=== PATIENT | female | born 1990 | race African-American/Black ===

== ENCOUNTER 2021-02-11 18:31 | Observation (INO) | payer OTHER, BC, SELFPAY ==
[2021-02-11] VITALS (11 sets, daily range): BP systolic 115–130; BP diastolic 46–83; PULSE 88–106; RESP 16; TEMP 36.7; O2SAT 97–100; BMI 42.2
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
--- NOTE | 2021-02-11 22:00 | PC.NURSE ---
FHT reactive, Pt denies contractions. Pt comortable and denies any complaints. TO nbe discharged to home.
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
== END 2021-02-11 22:10 | disposition home or self-care (01) ==
LOC: ANHED 19:31 → ANHOBPP 19:46
PROVIDERS: Admitting Provider Obstetrics & Gynecology; Emergency Provider Emergency Medicine; Visit Provider Obstetrics & Gynecology
DX: Z04.1 Encounter for examination and observation following transport accident (principal); O26.893 Other specified pregnancy related conditions, third trimester; T14.90XA Injury, unspecified, initial encounter; V49.40XA Driver injured in collision with unspecified motor vehicles in traffic accident, initial encounter; Z79.82 Long term (current) use of aspirin; Z3A.00 Weeks of gestation of pregnancy not specified
CPT/HCPCS: 99285; G0378

== ENCOUNTER 2021-03-21 17:06 | Inpatient (IN) | payer BC, SELFPAY ==
[2021-03-21 17:49] VITALS: BMI 42.2
--- NOTE | 2021-03-21 17:51 | LDADM ---
This patient, Tho Rey, was admitted to Labor/Delivery/Recovery 108 on 03/21/21 at 17:06. Plans for labor, pain management and were discussed with patient. Patient/family oriented to hospital policies and general routines including ID bracelet, bed and alarms, visiting hours, pain management, procedures, bathroom and other care routines, personal items, smoking policy, room service/diet and guest tray routines, infant security routines, and visiting hours. Patient/Family are encouraged to report perceived risks to care and to ask questions if they do not understand what they are told or what they should do. See OBIX for further documentation.
[2021-03-21 17:52] LABS: Basophils Percent Auto 0.2 % (0.2-1.2); Eosinophils Absolute Auto 0.1 K/mm3 (0-0.3); Eosinophils Percent Auto 1.9 % (0-4.4); Hemoglobin 13.2 g/dL (12.0-15.0); Immature Granulocyte Absolute 0.02 K/mm3 (0.00-0.031); Immature Granulocyte Percent A 0.3 % (0-0.5); Lymphocytes Absolute Auto 1.49 K/mm3 (0.9-3.2); Lymphocytes Percent Auto 25.8 % (18.3-44.2); Mean Corpuscular HGB Conc 33.8 g/dl (32-36); Mean Corpuscular Hemoglobin 29.9 pg (26-34); Mean Corpuscular Volume 88.4 fl (80-100); Monocytes Absolute Auto 0.4 K/mm3 (0.1-0.6); Monocytes Percent Auto 7.3 % (2.6-8.5); Neutrophils Absolute Auto 3.7 K/mm3 (1.3-6.7); Neutrophils Percent Auto 64.5 % (45.5-73.1); Platelet Count Result 160 k/mm3 (150-375); Red Blood Count 4.41 M/mm3 (4.2-5.4); Red Cell Distribution Width 13.2 % (11.5-14.5); White Blood Count 5.8 K/mm3 (4.5-10.0)
[2021-03-21 18:00] VITALS: BP 115/74; PULSE 90
[2021-03-21] MEDS: DINOPROSTONE 10 MG VAG INSERT VAGINAL (18:02)
[2021-03-21 19:00] VITALS: BP 115/68; PULSE 70
[2021-03-21 20:00] VITALS: BP 111/69; PULSE 74; TEMP 36.2
[2021-03-22] VITALS (301 sets, daily range): BP systolic 78–224; BP diastolic 47–212; PULSE 54–128; TEMP 36.1–36.8; O2SAT 90–100
[2021-03-22] MEDS: LACTATED RINGERS 1,000 ML 125 ML IV CONT ×4 (07:03→17:40)
[2021-03-22] MEDS: OXYTOCIN 30 UNITS/NS 500 ML 30 UNITS/500 ML BAG 6 UNITS IV CONT (07:05)
--- NOTE | 2021-03-22 08:22 | WPDOBADMIT ---
Obstetrics - Admit Note Admission Note: record reviewed. No pertinent additions to the history and/or any subsequent changes in the physical findings that are not consistent with the expected course of the were found. Additions to the history and/or subsequent changes in the physical findings follow. G1 at 39+1 s/p cervidil overnight for induction of labor. Cervix 2/70/-2. AROM with clear fluid and IUPC placed easily. Fetus reactive, moderate variability, occasionla variable decels. Category II. GBS negative.
--- NOTE | 2021-03-22 09:13 | WPDANESEPP ---
Anes - Eval Pre Procedure Procedure: Labor Epidural Date/Time: 03/22/21 09:13 Surgeon: Yariel Preop Diagnosis: Labor Pain Pre Op Diagnosis: induction Patient Data Age: 30 Gender: F Height: 1.65 m Weight: 115 kg Last Vital Signs Temp 36.2 C L 03/22/21 07:05 Pulse 78 03/22/21 09:10 BP 118/72 03/22/21 09:10 Pulse Ox 100 03/22/21 09:11 Allergies Allergy/AdvReac Type Severity Reaction Status Date / Time No Known Allergies Allergy Verified 03/19/21 14:31 Home Medications Medication Instructions Recorded Confirmed Type docosahexaenoic acid 200 mg capsule mg PO 09/04/20 02/26/21 History ergocalciferol (vitamin D2) 1,250 1,250 mcg PO 2XW #24 cap 10/06/20 02/26/21 Rx mcg (50,000 unit) capsule aspirin 81 mg chewable tablet 81 mg PO DAILY 10/23/20 02/26/21 History Laboratory Tests 03/21/21 03/21/21 03/21/21 17:40 17:40 17:40 WBC 5.8 K/mm3 K/mm3 (4.5-10.0) RBC 4.41 M/mm3 M/mm3 (4.2-5.4) Hgb 13.2 g/dL g/dL (12.0-15.0) Hct 39.0 % % (37.0-47.0) MCV 88.4 fl fl (80-100) MCH 29.9 pg pg (26-34) MCHC 33.8 g/dl g/dl (32-36) RDW 13.2 % % (11.5-14.5) Plt Count 160 k/mm3 k/mm3 (150-375) MPV 12.0 fl H fl (7.4-10.4) Immature Gran % (Auto) 0.3 % % (0-0.5) Neut % (Auto) 64.5 % % (45.5-73.1) Lymph % (Auto) 25.8 % % (18.3-44.2) Grady % (Auto) 7.3 % % (2.6-8.5) Eos % (Auto) 1.9 % % (0-4.4) Baso % (Auto) 0.2 % % (0.2-1.2) Lymph # (Auto) 1.49 K/mm3 K/mm3 (0.9-3.2) Grady # (Auto) 0.4 K/mm3 K/mm3 (0.1-0.6) Eos # (Auto) 0.1 K/mm3 K/mm3 (0-0.3) Baso # (Auto) 0.0 K/mm3 K/mm3 (0.0-0.1) Abs Immat Gran (auto) 0.02 K/mm3 K/mm3 (0.00-0.031) Absolute Neuts (auto) 3.7 K/mm3 K/mm3 (1.3-6.7) Absolute Nucleated RBC 0.0 K/mm3 K/mm3 (0.0-0.012) Nucleated RBC % 0.0 % % (0.0-0.2) RPR Pending Blood Type O Positive Antibody Screen Negative : gestational age (LULA 03/27/21, ) Patient hx anesthesia problems: none Family hx anesthesia problems: none PMFSH Surgical History Surgical History No pertinent past surgical history Family History Family History Mother Breast cancer Hypertension Father Diabetes mellitus Family history of arthritis Family history of gout Social History Social History Smoking status: Never smoker Alcohol intake: never Substance use: unknown Spiritual care concerns: No Exam Day of Procedure 03/22/21 09:13 Patient weight: morbidly obese Heart: regular rate and rhythm Lungs: normal air movement Airway: Mallampati scale class III Neurological: alert and oriented
[2021-03-22 10:08] LABS: Rapid Plasma Reagin Non-Reactive (NonReactive)
[2021-03-22] MEDS: PHENYLEPHRINE 1,000 MCG/10 ML SYRINGE 100 MCG IV PUSH (10:42)
[2021-03-22] MEDS: CALCIUM CARBONATE (TUMS) 500 MG (200 MG ELEMENTAL) PO (22:33)
[2021-03-23] VITALS (91 sets, daily range): BP systolic 93–144; BP diastolic 41–109; PULSE 69–179; RESP 16–18; TEMP 36.8–37.3; O2SAT 86–100
[2021-03-23] MEDS: AMPICILLIN 2 GM/NS 100 ML 2 GM/100 ML BAG IVPB (02:56)
[2021-03-23] MEDS: LACTATED RINGERS 1,000 ML 125 ML IV CONT (02:57)
--- NOTE | 2021-03-23 04:54 | PM.OBPRVD ---
OB - Delivery Note Procedure Delivery date: 03/23/21 Procedure: events: Labor Induction Intrapartal events: Prolonged Labor > 20 hours Induction method: per pitocin protocol and per cervidil protocol Delivery augmentation: rupture of membranes Delivery monitor: external FHT and internal uterine Route of delivery: Laceration Description: Periurethral and Perineal - 2nd Degree Delivery repair: vicryl (2-0 perineal, 3-0 periurethral) Specimen: No Quantitative Blood Loss (ml): 421 Anesthesia type: Local Disposition: floor [place] Baby Date of : 03/23/21 Time of : 04:20 Weeks of gestation at delivery: 39 gender: Male Weight (pounds): 6 Weight (ounces): 13 presentation: vertex position: Left Occiput Anterior cord vessel description: 3 Vessels, Nuchal Cord, True Knot, Loose, Reduced and Clamped/Cut score one minute: 8 score five minutes: 9
[2021-03-23] MEDS: OXYTOCIN 30 UNITS/NS 500 ML 30 UNITS/500 ML BAG 125 UNITS IV CONT (05:00)
[2021-03-23] MEDS: IBUPROFEN 600 MG TABLET PO ×2 (07:16→15:56)
[2021-03-23] MEDS: WITCH HAZEL 40 PADS 1 PAD TOPICAL (07:16)
[2021-03-23] MEDS: BENZOCAINE 20% AER SPR (*SP) 56 GM CAN 1 SPRAY TOPICAL (07:16)
--- NOTE | 2021-03-23 08:40 | PC.NURSE ---
Patient transferred to post room #286 via wheelchair. Support person present. Oriented to unit, room, information board, rooming in, admission packet and security measures. Patient verbalizes understanding.
--- NOTE | 2021-03-23 09:40 | PC.NURSE ---
Mother called out for assist with feeding. Mother states is unable to latch, she was given a nipple shield for first feeding. Reviewed infant feeding cues, frequencies, duration of feedings, feeding elimination flow sheet, and signs of adequate intake. Demonstrated stimulation techniques to wake infant for feeding. Assisted with to breast. Reviewed positioning/alignment in cross cradle, holding breast in ?U? hold and guided asymmetrical latch on. Reviewed rational for each. was unable to latch and draw nipple in deeply, several attempts made. Discussed nipple shield use and how shield may assist with latch. Reviewed nipple shield precautions and possible complications. Instructions given on application and cleaning of shield. Patient able to return demonstration on proper application of shield. Discussed the need to initiate pumping if continues to nurse with the shield. Patient verbalizes understanding. With shield in place, infant able to latch correctly within a few attempts. Infant nursed sleepily with a few bursts of suckling with occasional swallowing noted. Reviewed signs of a correct latch, effective nursing and suck swallow ratio. Infant was able to maintain latch without discomfort to mother. Suggested mother stimulate while feeding to increase stimulate, increase intake and to assist with maintaining deep latch. Demonstrated how to adjust latch more deeply while feeding if needed. Discussed the difference of effective vs ineffective feeding. Reviewed infant is latching with good burst of suckling, he is not feeding consistently with adequate milk transfer at this time and needs to be supplement after . Parents would like to wait for supplementation until next feeding. Instructed mother to call out for RN assistance if she is unable to latch for feeding or she has discomfort with nursing. Instructed feeding should be initiated three hours from start of last feeding or if feeding cues are noted before. Mother voiced understanding of information shared.
--- NOTE | 2021-03-23 12:35 | PC.NURSE ---
Mother called out for assist with feeding. Mother is unable to latch . Reviewed feeding cues, frequencies, duration of feedings, feeding elimination flow sheet, and signs of adequate intake. Demonstrated stimulation techniques to wake for feeding. Assisted with to breast. Reviewed positioning/alignment in cross cradle, holding breast in ?U? hold and guided asymmetrical latch on. Reviewed rational for each. was unable to latch and draw nipple in deeply, several attempts made. With shield in place, able to latch correctly within a few attempts. Infant nursed eagerly with steady draws and occasional swallowing noted for bursts followed with long pausing. Reviewed signs of a correct latch, effective nursing and suck swallow ratio. was able to maintain latch without discomfort to mother. Suggested mother stimulate while feeding to increase stimulate, increase intake and to assist with maintaining deep latch. Demonstrated how to adjust latch more deeply while feeding if needed. Discussed the difference of effective vs ineffective feeding. Reviewed is latching with good burst of suckling, he is not feeding consistently with adequate milk transfer at this time and needs to be supplement after . Feeding options discussed, Feeding Plan is for mother to put to breast each feeding for up to 15 minutes, then pace feed supplement 20 mls and pump for 10-15 minutes. Parents are comfortable with supplementation and pumping. If infant begins to nurse effectively with long draws and frequent swallowing noted, infant may decrease supplementation and discontinue pumping. 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 Discussed increasing supplementation as requires to satisfactions. Reviewed paced feeding and suggested to stop when is satisfied, as long as infant is having required output. With increased supplementation may not want to feed for 4 hours. Mother will continue to pump on infant feeding schedule and will increase session to 20 minutes if pumping every 4 hours. Instructed mother to call out for RN assistance if she is unable to latch for feeding or she has discomfort with nursing. Instructed feeding should be initiated three hours from start of last feeding or if feeding cues are noted before.
--- NOTE | 2021-03-23 13:00 | PC.NURSE ---
Breast pump provided due to nipple shield use/ineffective feeding. Instructions given on breast pump care and usage, pumping schedule, nipple care, and collection and storage of breast milk. Encouraged [id number], breast massage and manual expression to stimulate supply. Assessed patient for correct flange size, placement and draw. Patient verbalizes and demonstrates understanding of instructions.
[2021-03-23] MEDS: DOCUSATE SODIUM 100 MG CAPSULE PO (15:56)
[2021-03-23] MEDS: MULTIVIT/MIN/PREN/FOL AC/IRON TABLET 1 TAB PO (15:56)
[2021-03-24] VITALS: BP 114/69; PULSE 83; RESP 18; TEMP 37.2; O2SAT 100
[2021-03-24] MEDS: IBUPROFEN 600 MG TABLET PO ×3 (00:45→14:53)
[2021-03-24 04:00] VITALS: BP 124/75; PULSE 86; RESP 16; TEMP 37; O2SAT 100
[2021-03-24 04:54] LABS: Hematocrit 29.1 % (37.0-47.0); Hemoglobin 9.7 g/dL (12.0-15.0)
[2021-03-24] MEDS: ACETAMINOPHEN 325 MG TABLET 650 MG PO ×3 (05:09→19:47)
--- NOTE | 2021-03-24 07:42 | P.PNOB_ITS ---
OB - PN: Subj Subjective Date/time seen: 03/24/21 07:42 Patient comments: no complaints, pain well controlled and other (Lochia similar to menses) [place] baby status: doing well OB - PN: Obj Data Labs CBC & Chem 7: 03/24/21 04:47 Labs: Laboratory Results - last 24 hr 03/24/21 04:47 Hgb 9.7 L D Hct 29.1 L OB - PN A/P Plan day: 1 (s/p vaginal delivery, doing well) Plan: routine care Time Spent With Patient Time: Total time spent is greater than 50% in coordination of care (as documented) at patient's floor/unit and/or counseling patient: Exam Const: General: no acute distress GI: Inspection: other (Fundus firm and nontender at umbilicus) GI Palp: Yes Soft to palpation and No Tenderness to palpation present (GI) Extrem: General: no edema
[2021-03-24 08:00] VITALS: BP 120/70; PULSE 77; RESP 18; TEMP 36.6
[2021-03-24] MEDS: WITCH HAZEL 40 PADS 1 PAD TOPICAL (08:20)
[2021-03-24] MEDS: BENZOCAINE 20% AER SPR (*SP) 56 GM CAN 1 SPRAY TOPICAL (08:20)
[2021-03-24] MEDS: LANOLIN (LANSINOH) 7.5 GM CREAM 1 APPLIC TOPICAL (08:21)
[2021-03-24] MEDS: MULTIVIT/MIN/PREN/FOL AC/IRON TABLET 1 TAB PO (08:21)
[2021-03-24] MEDS: DOCUSATE SODIUM 100 MG CAPSULE PO ×2 (08:23→18:24)
[2021-03-24] MEDS: POLYSACCHARIDE IRON COMPLEX 150 MG CAPSULE PO ×2 (08:23→18:24)
--- NOTE | 2021-03-24 09:23 | WPDANLDPN2 ---
Anes-Prog Note L&D Date/Time: 03/24/21 09:23 Comfortable throughout: labor and delivery Neuraxial method: epidural Epidural/Spinal procedure site: clean & non-tender Neuro status: Neuro function grossly intact. Cardiovascular status: normal Respiratory status: normal Airway patency: baseline Mental status: baseline Post-Op hydration status: normal Vital Signs: Last Vital Signs Temp 36.6 C 03/24/21 08:00 Pulse 77 03/24/21 08:00 Resp 18 03/24/21 08:00 BP 120/70 03/24/21 08:00 Pulse Ox 100 03/24/21 04:00 Pain score (VAS): 0 Post-procedural complaints: none Patient feedback: Patient satisfied with anesthetic care.
--- NOTE | 2021-03-24 10:10 | PC.NURSE ---
Mother called out for assist with feeding. Mother reports infant is sleepy and makes eager attempts to latch with good bursts of nursing for some feedings, other feedings is eagerly nursing for 15 = minutes. Mother is supplementing after each feeding followed with 15 minutes of pumping. Reviewed infant feeding cues, frequencies, duration of feedings, feeding elimination flow sheet, and signs of adequate intake. Demonstrated stimulation techniques to wake infant for feeding. Assisted with to breast. Reviewed positioning/alignment in cross cradle, holding breast in ?U? hold and guided asymmetrical latch on. Reviewed rational for each. Infant was able/unable to latch correctly. nursed eagerly, with steady draws for good burst and with long rhythmical draws and occasional swallowing noted. Reviewed the difference of effective vs ineffective nursing. Reviewed signs of a correct latch, effective nursing and suck swallow ratio. was able to maintain latch without discomfort to mother. Suggested mother stimulate while feeding to increase stimulate, increase intake and to assist with maintaining deep latch. Demonstrated how to adjust latch more deeply while feeding if needed. Discussed the difference of effective vs ineffective feeding. Reviewed is latching with good burst of suckling, he is not feeding consistently with adequate milk transfer at this time and continues to need to be supplement after . Suggested to increase supplement to 15-20 mls per feeding. If begins to nurse effectively with long draws and frequent swallowing noted, infant may decrease supplementation and discontinue pumping. 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 Discussed increasing supplementation as infant requires to satisfactions. Reviewed paced feeding and suggested to stop when is satisfied, as long as infant is having required output. With increased supplementation may not want to feed for 4 hours. Mother will continue to pump on infant feeding schedule and will increase session to 20 minutes if pumping every 4 hours. Instructed mother to call out for RN assistance if she is unable to latch for feeding or she has discomfort with nursing. Instructed feeding should be initiated three hours from start of last feeding or if feeding cues are noted before. Mother voiced understanding of information shared.
[2021-03-24 19:43] VITALS: BP 111/64; PULSE 87; RESP 16; TEMP 36.7
[2021-03-25] MEDS: HYDROcodone/acetaminophen (*CRX) 5-325 MG TABLET 1 TAB PO (05:15)
[2021-03-25] MEDS: IBUPROFEN 600 MG TABLET PO (05:15)
[2021-03-25] MEDS: MULTIVIT/MIN/PREN/FOL AC/IRON TABLET 1 TAB PO (07:13)
[2021-03-25] MEDS: POLYSACCHARIDE IRON COMPLEX 150 MG CAPSULE PO (07:13)
[2021-03-25] MEDS: BENZOCAINE 20% AER SPR (*SP) 56 GM CAN 1 SPRAY TOPICAL (07:13)
[2021-03-25] MEDS: DOCUSATE SODIUM 100 MG CAPSULE PO (07:13)
[2021-03-25] MEDS: WITCH HAZEL 40 PADS 1 PAD TOPICAL (07:13)
[2021-03-25 08:00] VITALS: BP 125/73; PULSE 79; RESP 18; TEMP 36.7
--- NOTE | 2021-03-25 08:11 | PM.OBPNVD ---
OB - PN: Subj Subjective Date/time seen: 03/25/21 08:11 Patient comments: no complaints, pain well controlled and other (Lochia similar to menses) [place] baby status: doing well OB - PN: Obj Data Labs CBC & Chem 7: 03/24/21 04:47 OB - PN A/P Plan day: 2 (s/p vaginal delivery, doing well) Plan: routine care, discharge home and other (Follow up in office in 4 weeks) Time Spent With Patient Time: Total time spent is greater than 50% in coordination of care (as documented) at patient's floor/unit and/or counseling patient: Exam Const: General: no acute distress GI: Inspection: other (Fundus firm and nontender below umbilicus) GI Palp: Yes Soft to palpation and No Tenderness to palpation present (GI) Extrem: General: no edema
--- NOTE | 2021-03-25 08:12 | PM.OBDSVD ---
DS: Admitting Diagnosis Discharge Date 03/25/2021 Admitting Diagnosis Induction of labor DS: Discharge Diagnosis Discharge Diagnosis (1) Vaginal delivery: Code(s): O80 - Encounter for full-term uncomplicated delivery Status: Acute OB - DS: Summary OB Procedures : None OB Procedures Intrapartum: Spontaneous Vag Delivery OB Procedures: : None Time Spent with Patient Time attestation: Total time spent providing and/or coordinating discharge services: Discharge Plan Discharge Attending physician on discharge: Nelida Saldivar Discharging Clinician: Nelida Saldivar Patient Disposition: Home, Self-Care Activity: may shower and pelvic rest Diet: as tolerated Patient Instructions: Antibiotic Form Stand Alone Forms: General Discharge Information Follow-up/Referrals: Nelida Saldivar MD [Physician] - 4 Weeks Discharge Medications: New hydrocodone-acetaminophen 5-325 mg Tablet 1 tablet PO Q4H PRN (Reason: Moderate Pain (4-6)) Qty: 20 RF: 0 ibuprofen 600 mg Tablet 600 mg PO Q6H PRN (Reason: Cramping) Qty: 60 RF: 0 Continued DHA 200 mg capsule PO RF: 0 ergocalciferol (vitamin D2) 1,250 mcg (50,000 unit) capsule 1,250 mcg PO 2XW Qty: 24 RF: 2 Discontinued aspirin 81 mg tablet,chewable 81 mg PO DAILY RF: 0 Date of admission: 03/21/21 17:06 Primary Care Provider: PHYSICIAN,RN CLINICAL DOCUMENTATION Admitting Provider: Nelida Saldivar Attending physician on admission: Nelida Saldivar Condition: Stable
--- NOTE | 2021-03-25 09:15 | PC.NURSE ---
Mother is able to independently latch with appropriate positioning/alignment using the nipple shield. She denies any nipple discomfort, is feeding as required and waking to feed if needed. has had a few effective feedings followed with supplementation in the past 24 hours, and is currently meeting outcomes for weight, output, jaundice and feeding frequencies. is more awake and eager to feed today. Infant continues to require supplementation due to ineffective feeding and nipple shield use. Mother continues to pump without difficulties or discomfort after all feedings due to ineffective feeding. Mother states she feels confident to continue current feeding plan at home. Mother has her own double electric pump for home use. Discussed increasing supplementation as requires to satisfactions. Reviewed paced feeding and suggested to stop when infant is satisfied, as long as is having required output. With increased supplementation infant may not want to feed for 4 hours. Mother will continue to pump on feeding schedule and will increase session to 20 minutes if pumping every 4 hours. Reviewed once mother?s milk is established and is effectively feeding, infant may have increased intake with nursing. If is effective feeding with long draws and frequent swallowing noted, infant may be ready to decrease/discontinue supplementation. Advised not to discontinue supplement until ICP, Follow-Up RN or LC has a pre/post weighted evaluation of infant feeding. Discussed nipple shield weaning techniques Reviewed transition to breast milk, signs of adequate intake, and engorgement/relief. Instructed to call ICP if intake/output less than required. Reviewed regular medications mother is taking. Information provided per Angie. Reviewed community resources on the [facility] website and in the Mom/Baby guide. Information on outpatient services provided. Mother has no further questions at this time.
--- NOTE | 2021-03-25 09:45 | PC.NURSE ---
Self care and infant care discharge instructions given including follow up visit date and time. Mother verbalized understanding. No questions or concerns voiced. Very pleasant and cooperative. FOB at side.
[2021-03-26 11:40] VITALS: BP 134/77; PULSE 83; RESP 20; TEMP 37.2; O2SAT 100
== END 2021-03-25 12:07 | disposition home or self-care (01) | DRG 807 ==
LOC: ANHLDR 17:09 → ANHOB2 03-23 09:00
PROVIDERS: Admitting Provider Obstetrics & Gynecology; Visit Provider Obstetrics & Gynecology
DX: O36.8330 Maternal care for abnormalities of the fetal heart rate or rhythm, third trimester, not applicable or unspecified (principal); Z37.0 Single live birth; Z3A.39 39 weeks gestation of pregnancy; O70.1 Second degree perineal laceration during delivery; O71.82 Other specified trauma to perineum and vulva; O99.214 Obesity complicating childbirth; E66.01 Morbid (severe) obesity due to excess calories; O69.1XX0 Labor and delivery complicated by cord around neck, with compression, not applicable or unspecified
CPT/HCPCS: 36415; 85014; 85018; 85025; 86592; 86850; 86900; 86901; A9270; J0290; J2370; J2590; J2795; J7120

== ENCOUNTER 2023-04-20 11:11 | Outpatient (CLI) | payer OTHER, SELFPAY ==
--- NOTE | ~2023-04-20 | US_ITS ---
EXAMINATION: US OB <= 14 weeks fetus DATE: 04/20/2023 11:51 INDICATION: Establish dating of during first trimester TECHNIQUE: Real-time pelvic ultrasound utilizing transabdominal probe was performed. The dae villeda radiologist was not present for the study. COMPARISON: None. FINDINGS: The uterus measures 14.9 x 6.1 x 9.1 cm. There is an intrauterine gestational sac with single fetus. The crown rump length measures 4.5 cm, which correlates with an estimated gestational age of 11 week s and 2 days. heart motion is identified measuring 152 beats per minute (bpm) by M-mode Doppler . The right and left ovaries are not visualized. There is no free fluid in the pelvis. IMPRESSION: 1. Single living fetus with heart rate of 152 bpm. 2. Gestational age by ultrasound of 11 weeks 2 day(s) +/- 7 day(s) with ultrasound estimated date of delivery (LULA) of 11/07/2023. Reviewed, dictated and finalized at location A. IMPRESSION: 1. Single living fetus with heart rate of 152 bpm. 2. Gestational age by ultrasound of 11 weeks 2 day(s) +/- 7 day(s) with ultras ound estimated date of delivery (LULA) of 11/07/2023.
== END 2023-04-20 11:12 ==
PROVIDERS: PCP Registered Nurse; Visit Provider Registered Nurse
DX: Z36.9 Encounter for antenatal screening, unspecified (principal); Z3A.11 11 weeks gestation of pregnancy
CPT/HCPCS: 76801

== ENCOUNTER 2023-10-20 11:58 | Outpatient (RCR) | payer OTHER, SELFPAY ==
[2023-10-20 12:37] VITALS: BP 131/80; PULSE 83
== END 2023-12-18 08:15 | disposition home or self-care (01) ==
LOC: ANHOBOP 11:58
PROVIDERS: Visit Provider Obstetrics & Gynecology
DX: O26.00 Excessive weight gain in pregnancy, unspecified trimester (principal); Z3A.37 37 weeks gestation of pregnancy
CPT/HCPCS: 59025

== ENCOUNTER 2023-11-10 04:47 | Inpatient (IN) | payer OTHER, SELFPAY ==
[2023-11-10] VITALS (178 sets, daily range): BP systolic 99–161; BP diastolic 50–109; PULSE 64–285; TEMP 36.1–37.1; O2SAT 64–100; BMI 44.4
--- NOTE | 2023-11-10 05:34 | WPDANESEPP ---
Anes - Eval Pre Procedure Procedure: Labor Epidural Date/Time: 11/10/23 05:34 Surgeon: Sindi Preop Diagnosis: Labor Pain Pre Op Diagnosis: IOL Patient Data Age: 33 Gender: F Height: Weight: Last Vital Signs Pulse 91 11/10/23 05:30 BP 123/75 11/10/23 05:30 Allergies Allergy/AdvReac Type Severity Reaction Status Date / Time No Known Allergies Allergy Verified 11/10/23 05:34 Home Medications Medication Instructions Recorded Confirmed Type vitamin-ferrous 1 tablet PO DAILY 05/04/23 11/10/23 History sulfate-folic acid 27 mg-0.3 mg tablet aspirin 81 mg tablet 81 mg PO DAILY 10/10/23 11/10/23 History Laboratory Tests 11/10/23 05:22 WBC Pending RBC Pending Hgb Pending Hct Pending MCV Pending MCH Pending MCHC Pending RDW Pending Plt Count Pending MPV Pending Immature Gran % (Auto) Pending Neut % (Auto) Pending Lymph % (Auto) Pending [place] % (Auto) Pending Eos % (Auto) Pending Baso % (Auto) Pending Lymph # (Auto) Pending [place] # (Auto) Pending Eos # (Auto) Pending Baso # (Auto) Pending Abs Immat Gran (auto) Pending Absolute Neuts (auto) Pending Absolute Nucleated RBC Pending Nucleated RBC % Pending RPR Pending : gestational age (LULA 11/08/23, ) Patient hx anesthesia problems: none Family hx anesthesia problems: none Results Review: All pre-operative results and documents have been reviewed as part of the pre-operative evaluation. [facility] Past Medical History Medical History Direct occiput anterior presentation of fetus in second trimester Vaginal delivery x1 Surgical History Surgical History No pertinent past surgical history Family History Family History Mother Breast cancer Hypertension Father Family history of gout Diabetes mellitus Family history of arthritis Sibling Breast cancer Social History Social History Smoking status: Never smoker Alcohol intake: never Substance use: never Lack of Transportation: No Lack of Food: Never True Current Housing: I Have Housing Concerned About Future Housing: No Difficulty Paying Gas/Electric Bills: No Difficulty Paying for Meds: No Currently Unemployed: No Difficulty w/ Childcare or Family Care: No Living arrangements: with family Occupation/Education: unemployed Gender identity (if verbalized by the patient): Female Sexual Orientation (if Verbalized by the Patient): Straight or Heterosexual Spiritual care concerns: No Exam Day of Procedure 11/10/23 05:34 Patient weight: obese Heart: regular rate and rhythm Lungs: normal air movement Airway: Mallampati scale class II Neurological: alert and oriented
[2023-11-10 05:35] LABS: Basophils Percent Auto 0.2 % (0.2-1.2); Eosinophils Absolute Auto 0.1 K/mm3 (0-0.3); Eosinophils Percent Auto 1.1 % (0-4.4); Hematocrit 36.4 % (37.0-47.0); Hemoglobin 11.9 g/dL (12.0-15.0); Immature Granulocyte Absolute 0.01 K/mm3 (0.00-0.031); Immature Granulocyte Percent A 0.2 % (0-0.5); Lymphocytes Absolute Auto 1.92 K/mm3 (0.9-3.2); Lymphocytes Percent Auto 34.2 % (18.3-44.2); Mean Corpuscular HGB Conc 32.7 g/dl (32-36); Mean Corpuscular Hemoglobin 28.5 pg (26-34); Mean Corpuscular Volume 87.1 fl (80-100); Mean Platelet Volume 12.1 fl (7.4-10.4); Monocytes Absolute Auto 0.4 K/mm3 (0.1-0.6); Monocytes Percent Auto 7.5 % (2.6-8.5); Neutrophils Absolute Auto 3.2 K/mm3 (1.3-6.7); Neutrophils Percent Auto 56.8 % (45.5-73.1); Platelet Count Result 175 k/mm3 (150-375); Red Blood Count 4.18 M/mm3 (4.2-5.4); Red Cell Distribution Width 12.9 % (11.5-14.5); White Blood Count 5.6 K/mm3 (4.5-10.0)
[2023-11-10] MEDS: OXYTOCIN 30 UNITS/NS 500 ML 30 UNITS/500 ML BAG IV CONT (05:47)
[2023-11-10] MEDS: LACTATED RINGERS 1,000 ML 125 ML IV CONT ×3 (05:47→15:53)
[2023-11-10 11:19] LABS: Rapid Plasma Reagin Non-Reactive (NonReactive)
--- NOTE | 2023-11-10 13:10 | PM.IMHP ---
H&P: HPI History of Present Illness Date/Time: 11/10/23 13:10 Chief Complaint: Induction of labor Narrative: 33 y/o at 40 weeks admitted for MIL. PNC significant for BMI >40. She has had transient mild polyhydramnios and had normal glucose testing. She has had reassuring surveillance testing. She has been informed of risk benefits of induction of labor vs spontaneous labor and risk benefits of each and has opted for MIL. Review of Systems Review of Systems: All systems reviewed & are unremarkable except as noted in HPI and below Constitutional: Constitutional: Reports no additional constitutional complaints and Denies headache(s) Eyes: Eyes: Denies spots in vision ENT: Reports system reviewed and no additional complaints, except as documented and Denies headache(s) Cardiovascular: Cardiovascular: Denies chest pain and Denies dyspnea Respiratory: Respiratory: Denies dyspnea Gastrointestinal: Gastrointestinal: Reports no additional gastrointestinal complaints Genitourinary: Genitourinary: Reports amenorrhea Musculoskeletal: Musculoskeletal: Reports no additional musculoskeletal complaints Integumentary/Breasts: Skin/Breast: Denies breast mass and Denies rash Neurologic: Denies headache(s) Psychiatric: Psychiatric: Reports no additional psychiatric complaints [facility] Past Medical History Medical History Direct occiput anterior presentation of fetus in second trimester Vaginal delivery x1 Surgical History Surgical History No pertinent past surgical history Family History Family History Mother Breast cancer Hypertension Father Family history of gout Diabetes mellitus Family history of arthritis Sibling Breast cancer Social History Social History Smoking status: Never smoker Alcohol intake: never Substance use: never Do You Feel Safe in your Home?: Yes Lack of Transportation: YES Lack of Food: Never True Current Housing: I Have Housing Concerned About Future Housing: No Difficulty Paying Gas/Electric Bills: No Difficulty Paying for Meds: No Currently Unemployed: No Education: High School Diploma/GED Difficulty w/ Childcare or Family Care: No Living arrangements: with family Occupation/Education: unemployed Gender identity (if verbalized by the patient): Female Sexual Orientation (if Verbalized by the Patient): Straight or Heterosexual Spiritual care concerns: No Meds Home Medications and Allergies Home Medications Medication Instructions Recorded Confirmed Type vitamin-ferrous 1 tablet PO DAILY 05/04/23 11/10/23 History sulfate-folic acid 27 mg-0.3 mg tablet aspirin 81 mg tablet 81 mg PO DAILY 10/10/23 11/10/23 History Allergies Allergy/AdvReac Type Severity Reaction Status Date / Time No Known Allergies Allergy Verified 11/10/23 05:34 Vital Signs Vital Signs - 24 hr 11/10/23 05:30 11/10/23 05:45 11/10/23 06:00 Temperature Pulse Rate 91 84 90 Blood Pressure 123/75 122/76 134/76 Pulse Oximetry Oxygen Delivery 11/10/23 06:03 11/10/23 06:15 11/10/23 06:31 Temperature Pulse Rate 82 82 Blood Pressure 139/88 138/84 Pulse Oximetry 97 Oxygen Delivery 11/10/23 06:45 11/10/23 07:01 11/10/23 07:16 Temperature Pulse Rate 89 82 79 Blood Pressure 133/84 131/69 142/89 H Pulse Oximetry Oxygen Delivery 11/10/23 07:30 11/10/23 07:46 11/10/23 08:00 Temperature Pulse Rate 79 79 89 Blood Pressure 134/84 137/75 136/77 Pulse Oximetry Oxygen Delivery 11/10/23 08:15 11/10/23 08:30 11/10/23 08:46 Temperature Pulse Rate 75 79 87 Blood Pressure 149/88 H 155/96 H 154/90 H Pulse Oximetry Oxygen Delivery 11/10/23 09:01 11/10/23 09:15 11/10/23 09:31 Temperature Pulse Rate 89 84 91 Blood Pressure 144/81 H 149/93 H 121/78 Pulse Oximetry Oxygen Delivery 11/10/23 09:45 11/10/23 10:01 11/10/23 10:21 Temperature 97.9 F Pulse Rate 83 87 86 Blood Pressure 131/104 H 132/75 139/82 Pulse Oximetry Oxygen Delivery 11/10/23 10:30 11/10/23 10:45 11/10/23 12:02 Temperature Pulse Rate 87 92 82 Blood Pressure 139/79 138/83 143/86 H Pulse Oximetry Oxygen Delivery 11/10/23 12:16 11/10/23 12:00 11/10/23 12:31 Temperature 97.5 F L Pulse Rate 81 89 Blood Pressure 161/97 H 133/81 Pulse Oximetry Oxygen Delivery 11/10/23 12:46 11/10/23 05:36 Temperature Pulse Rate 86 Blood Pressure 138/94 H Pulse Oximetry Oxygen Delivery Room Air Exam Const: General: no acute distress Eyes: General: appearance normal, both eyes and all related structures Resp: Effort & Inspection: normal respiratory effort Cardio: Rate: regular rate GI: Other: Gravid no fundal tenderness no right upper quadrant pain Skin: General skin exam: no rashes or lesions noted Neuro: Cognition (Neuro): normal cognition Extrem: General: normal to inspection Psych: Mental Status: mental status grossly normal H&P: Results Labs Labs: Short CBC 11/10/23 Range/Units 05:22 WBC 5.6 (4.5-10.0) K/mm3 Hgb 11.9 L (12.0-15.0) g/dL Hct 36.4 L (37.0-47.0) % Plt Count 175 (150-375) k/mm3 Assessment and Plan Assessment and plan (1) Encounter for induction of labor: Code(s): Z34.90 - Encounter for supervision of normal , unspecified, unspecified trimester Status: Acute Assessment and Plan: 1. Admit 2. Pitocin induction.
[2023-11-10] MEDS: fentaNYL CITRATE INJ (*CRX) 100 MCG/2 ML VIAL IV PUSH (13:39)
--- NOTE | 2023-11-10 13:59 | P.PNOB_ITS ---
OB - PN: Subj Subjective Date/time seen: 11/10/23 13:59 Interval history: 135, cat 1, arom clear, /-2. OB - PN: Obj Data Labs 11/10/23 05:22 Labs: Laboratory Results - last 24 hr 11/10/23 05:22 WBC 5.6 RBC 4.18 L Hgb 11.9 L Hct 36.4 L MCV 87.1 MCH 28.5 MCHC 32.7 RDW 12.9 Plt Count 175 MPV 12.1 H Immature Gran % (Auto) 0.2 Neut % (Auto) 56.8 Lymph % (Auto) 34.2 [place] % (Auto) 7.5 Eos % (Auto) 1.1 Baso % (Auto) 0.2 Lymph # (Auto) 1.92 [place] # (Auto) 0.4 Eos # (Auto) 0.1 Baso # (Auto) 0.0 Abs Immat Gran (auto) 0.01 Absolute Neuts (auto) 3.2 Absolute Nucleated RBC 0.000 Nucleated RBC % 0.0 RPR Non-reactive Blood Type O Positive Antibody Screen Negative OB - PN A/P Time Spent With Patient Time: Total time spent is greater than 50% in coordination of care (as documented) at patient's floor/unit and/or counseling patient:
[2023-11-10] MEDS: SODIUM CHLORIDE 0.9% IV 300 ML 600 ML I-UTERINE (14:00)
[2023-11-10] MEDS: SODIUM CHLORIDE 0.9% IV 1,000 ML 150 ML I-UTERINE ×2 (14:33→19:00)
[2023-11-10] MEDS: fentaNYL CITRATE INJ (*CRX) 100 MCG/2 ML VIAL 50 MCG IV PUSH (15:05)
--- NOTE | 2023-11-10 19:06 | P.PNOB_ITS ---
OB - PN: Subj Subjective Date/time seen: 11/10/23 19:06 Interval history: tracing reviewed, cat 2, episodes of arrhythmia, continue pitocin, mod variability. OB - PN: Obj Data Labs 11/10/23 05:22 Labs: Laboratory Results - last 24 hr 11/10/23 05:22 WBC 5.6 RBC 4.18 L Hgb 11.9 L Hct 36.4 L MCV 87.1 MCH 28.5 MCHC 32.7 RDW 12.9 Plt Count 175 MPV 12.1 H Immature Gran % (Auto) 0.2 Neut % (Auto) 56.8 Lymph % (Auto) 34.2 [place] % (Auto) 7.5 Eos % (Auto) 1.1 Baso % (Auto) 0.2 Lymph # (Auto) 1.92 [place] # (Auto) 0.4 Eos # (Auto) 0.1 Baso # (Auto) 0.0 Abs Immat Gran (auto) 0.01 Absolute Neuts (auto) 3.2 Absolute Nucleated RBC 0.000 Nucleated RBC % 0.0 RPR Non-reactive Blood Type O Positive Antibody Screen Negative OB - PN A/P Time Spent With Patient Time: Total time spent is greater than 50% in coordination of care (as documented) at patient's floor/unit and/or counseling patient:
[2023-11-10] MEDS: OXYTOCIN 30 UNITS/NS 500 ML 30 UNITS/500 ML BAG 125 UNITS IV CONT (23:00)
--- NOTE | 2023-11-10 23:01 | P.PCNOB_ITS ---
OB - Vaginal Delivery Note Procedure Delivery date: 11/10/23 Induction method: Per Pitocin Protocol Delivery augmentation: Rupture of Membranes Delivery monitor: External FHT, External Uterine, Internal FHT and Internal Uterine Route of delivery: Laceration Description: Periurethral (right) Delivery repair: vicryl (3.0 vicryl) Quantitative Blood Loss (ml): 400 Anesthesia type: Epidural Disposition: Floor Complications: No immediate complications Narrative: She was admitted for [facility]. She had Pitocin started. She had AROM. tracing had intermittent episodes of arrhythmia. FSE placed confirmed. Episode of repetitive variables and IUPC and amnioinfusion started. Variables improved. She continued to progress to complete. Peds present due to arrhythmia. Once head delivered then brisk bleeding coming from anterior. Placenta delivered intact. Cord blood and cord gases obtained. There was brisk bleeding from periurethral vessel. Several figure of eight sutures 0 vicryl were placed. Hemostasis noted. Shelley catheter inserted and will be kept in until am. [place] Baby Date of : 11/10/23 Time of : 22:33 Weeks of gestation at delivery: 40 Infant gender: Male Weight (pounds): 7 Weight (ounces): 9 presentation: vertex position: Right Occiput Anterior Placenta delivery description: Spontaneous Cord Vessel Description: Nuchal Cord (x1 loose) and Reduced (manually) score one minute: 7 score five minutes: 9
[2023-11-11 00:47] VITALS: BP 120/70; PULSE 90
[2023-11-11 01:00] VITALS: BP 113/64; PULSE 89
--- NOTE | 2023-11-11 01:45 | OBPPTRN ---
Patient transferred to post room # 284 via ( wheelchair ). Support person present. Oriented to unit, room, information board, rooming in, admission packet and security measures. Patient verbalizes understanding.
[2023-11-11] MEDS: ACETAMINOPHEN 325 MG TABLET 650 MG PO ×3 (01:57→16:55)
[2023-11-11 04:00] VITALS: BP 109/70; PULSE 89; RESP 18; TEMP 36.7; O2SAT 100
[2023-11-11 05:04] LABS: Hematocrit 29.3 % (37.0-47.0); Hemoglobin 9.6 g/dL (12.0-15.0)
[2023-11-11 07:00] VITALS: BP 106/67; PULSE 81; RESP 18; TEMP 36.8
--- NOTE | 2023-11-11 09:45 | P.PNOB_ITS ---
OB - PN: Subj Subjective Date/time seen: 11/11/23 09:45 Interval history: Catheter removed today. Patient comments: pain well controlled, tolerating diet and other (Decreasing lochia.) baby status: doing well and nursing well [place] feeding status: exclusively breast feeding OB - PN: Obj Data Labs 11/11/23 04:46 Labs: Laboratory Results - last 24 hr 11/10/23 11/11/23 05:22 04:46 Hgb 9.6 L Hct 29.3 L RPR Non-reactive OB - PN A/P Assessment and Plan (1) Vaginal delivery: Code(s): O80 - Encounter for full-term uncomplicated delivery Status: Acute Assessment and Plan: Doing well. Plan day: 1 Plan: routine care Comments: Patient doing well. Time Spent With Patient Time: Total time spent is greater than 50% in coordination of care (as documented) at patient's floor/unit and/or counseling patient: Exam Psych: Affect: normal affect Other: Abd: fundus firm below umbilicus, nontender Perineum: healing Ext: nontender
[2023-11-11] MEDS: IBUPROFEN 600 MG TABLET PO ×2 (10:54→16:56)
[2023-11-11] MEDS: MULTIVIT/MIN/PREN/FOL AC/IRON TABLET 1 TAB PO (10:54)
[2023-11-11] MEDS: POLYSACCHARIDE IRON COMPLEX 150 MG CAPSULE PO ×2 (10:54→16:56)
[2023-11-11] MEDS: DOCUSATE SODIUM 100 MG CAPSULE PO ×2 (10:54→16:56)
[2023-11-11 12:40] VITALS: BP 119/77; PULSE 98; RESP 18; TEMP 36.8
[2023-11-11 20:00] VITALS: BP 122/77; PULSE 90; RESP 18; TEMP 36.5; O2SAT 100
[2023-11-12] MEDS: ACETAMINOPHEN 325 MG TABLET 650 MG PO ×2 (03:15→09:09)
[2023-11-12] MEDS: IBUPROFEN 600 MG TABLET PO ×2 (03:15→09:09)
[2023-11-12 09:00] VITALS: BP 131/80; PULSE 90; RESP 16; TEMP 36.4; O2SAT 100
[2023-11-12] MEDS: POLYSACCHARIDE IRON COMPLEX 150 MG CAPSULE PO (09:08)
[2023-11-12] MEDS: DOCUSATE SODIUM 100 MG CAPSULE PO (09:09)
[2023-11-12] MEDS: MULTIVIT/MIN/PREN/FOL AC/IRON TABLET 1 TAB PO (09:09)
--- NOTE | 2023-11-12 09:16 | PM.OBDSVD ---
DS: Admitting Diagnosis Discharge Date 11/12/23 Admitting Diagnosis Induction of labor DS: Discharge Diagnosis Discharge Diagnosis (1) Vaginal delivery: Code(s): O80 - Encounter for full-term uncomplicated delivery Status: Acute (2) Encounter for induction of labor: Code(s): Z34.90 - Encounter for supervision of normal , unspecified, unspecified trimester Status: Acute OB - DS: Summary Hospital Course Hospital Course: She was admitted for medical induction of labor. She had an uncomplicated vaginal delivery. She did well . She had asymptomatic anemia. Oral iron therapy started. Baby did well. She was discharged to home on day 2. Baby was doing well. Discharge precautions discussed. OB Procedures : Ultrasound OB Procedures Intrapartum: Spontaneous Vag Delivery OB Procedures: : None Peripartum Data Delivery Method: Natural Vaginal Laceration Description: Periurethral (right, periclitoral) complications: none Status at Discharge Functional status at discharge: independent ambulation Time Spent with Patient Time attestation: Total time spent providing and/or coordinating discharge services: Exam Const: General: cooperative Orientation/consciousness: oriented to person, oriented to place and oriented to time HENMT: Face/Nose/Sinus: Normal external nose present Eyes: General: appearance normal, both eyes and all related structures Resp: Effort & Inspection: normal respiratory effort GI: Inspection: normal to inspection Skin: General skin exam: normal color Neuro: General: oriented to person, oriented to place and oriented to time Extrem: General: normal to inspection and no calf tenderness Psych: Appearance: grossly normal Mental Status: mental status grossly normal Discharge Plan Discharge Attending physician on discharge: Tera Delong Consulting providers: Ayana Garcia Discharging Clinician: Tera Delong Anticipated Discharge Date/Time: 11/12/23 09:14 Patient Disposition: Home, Self-Care Activity: may shower and pelvic rest Diet: regular Discharge Instructions: Education: Mom and Baby Guide Given to: Mother Follow-Up: Call your delivering provider's office for an appointment to be seen in: 4 Weeks Mom and baby should come to the [facility] for the follow-up appointment. Appointment Date/Time: November 14, 2023 at 8:00 am What to expect at your follow-up visit: Physical Assessment Call [phone] if you are unable to keep your appointment time. BREAST CARE: * Wear a snug supportive bra. * For engorgement discomfort: Breast Feeding: * Apply warm moist washcloths * Express milk as needed to relieve engorgement * Wear loose clothing * For sore nipples: * Identify correct latch-on * Apply warm moist washcloths before and after nursing * Air dry nipples after nursing * May apply Lansinoh cream to nipples EPISIOTOMY/PERINEAL CARE: * Until bleeding stops, use your torey bottle after urinating * Change your pad frequently throughout the day * You may take sitz baths several times a day (fill your bathtub with warm water and soak for 20 minutes.) Do NOT bathe in the water * No tub baths until seen by your physician - You may shower ACTIVITY: * Rest as much as possible. * Do not exercise or lift anything heavier than your baby (such as laundry or other children.) * Avoid stairs or driving as much as possible. * Do not put anything into the vagina. No douching, tampons, or sexual activity until seen by physician. NOTIFY PHYSICIAN IF YOU HAVE ANY QUESTIONS OR IF ANY OF THE FOLLOWING SYMPTOMS OCCUR: * If your episiotomy or incision becomes red, swollen, or more painful than what you have experienced in the hospital. * If your vaginal bleeding becomes foul smelling. * If your vaginal bleeding becomes more heavy than a period or if your bleeding changes from pink to bright red. However, you may pass an occasional walnut-sized clot once or twice for the first week . * If you experience a sharp, shooting pain in you calves. * If you discover a hard, reddened area on your breast or if you experience flu-like symptoms. DIET: * Eat regular, well-balanced meals. * Drink plenty of fluids daily. If , drink to thirst. Stand Alone Forms: General Discharge Information Follow-up/Referrals: Tera Delong MD [Physician] - 4 Weeks Discharge Medications: Continued vit-ferrous sulfat-FA 27-0.3 mg tablet 1 tablet PO DAILY Discontinued aspirin 81 mg Tablet 81 mg PO DAILY Date of admission: 11/10/23 04:47 Primary Care Provider: PHYSICIAN,LABORER [employer]ING Admitting Provider: Tera Delong Attending physician on admission: Tera Delong Condition: Stable
--- NOTE | 2023-11-12 11:14 | PC.NURSE ---
Patient viewed the discharge video Mother & Baby Care, The First Two Weeks . Patient was given the opportunity and encouraged to ask questions. Patient verbalized understanding of information shared and has been given the mother/baby guide for home reference.
[2023-11-14 07:50] VITALS: BP 131/83; PULSE 89; RESP 20; TEMP 37.1; O2SAT 100
== END 2023-11-12 13:35 | disposition home or self-care (01) | DRG 560 ==
LOC: ANHLDR 04:52 → ANHOB2 11-11 02:22
PROVIDERS: Admitting Provider Obstetrics & Gynecology; Visit Provider Obstetrics & Gynecology
DX: O69.81X0 Labor and delivery complicated by cord around neck, without compression, not applicable or unspecified (principal); Z37.0 Single live birth; Z3A.40 40 weeks gestation of pregnancy; O71.82 Other specified trauma to perineum and vulva; O36.8330 Maternal care for abnormalities of the fetal heart rate or rhythm, third trimester, not applicable or unspecified
CPT/HCPCS: 36415; 85014; 85018; 85025; 86592; 86850; 86900; 86901; A9270; J2590; J2795; J3010; J7030; J7120